=== PATIENT | female | born 2000 | race Two or more races ===

== ENCOUNTER 2021-04-11 00:19 | Emergency (ER) | payer OTHER ==
[~2021-04-11] VITALS: Ht 154.9 cm; Wt 54.4 kg
--- NOTE | 2021-04-11 00:19 | NUR ---
[facility] SI "CUT SELF WITH BLADE" ON 515 BY JEB, PT TO BED 13, COOPERATIVE. SI PRECAUTIONS STARTED, BELONGINGS KEPT IN LOCKER, DENIES SOB/CP VSS PENDING ER PROVIDER JENNIFER
[2021-04-11 01:18] LABS: BILIRUBIN,URINE SMALL (NEGATIVE); COLOR,URINE YELLOW (YELLOW); LEUKOCYTE ESTERASE ,URINE Negative (NEGATIVE); NITRITE, URINE Negative (NEGATIVE); PH,URINE 6.5 (5.0-8.0); PROTEIN,URINE Negative (NEGATIVE); UGLUCOSE Negative (NEGATIVE); UROBILINOGEN,URINE 0.2 EU/dL (0.2)
--- NOTE | 2021-04-11 01:27 | NUR ---
DELFINO [phone]
[2021-04-11 01:31] LABS: BASOPHILS % (AUTO) 0.4 % (0.0-2.0); EOSINOPHILS % (AUTO) 2.3 % (0.0-6.0); HEMATOCRIT 38 % (33-45); HEMOGLOBIN 12.9 g/dL (11.5-14.8); LYMPHOCYTES # (AUTO) 2.1 K/uL (0.8-4.8); LYMPHOCYTES % (AUTO) 22.7 % (20.0-44.0); MEAN CORPUSCULAR HGB CONC 34 g/dl (31.0-36.0); MEAN CORPUSCULAR VOLUME 85 fL (82-100); MONOCYTES # (AUTO) 0.8 K/uL (0.1-1.30); MONOCYTES % (AUTO) 8.2 % (2.0-12.0); NEUTROPHILS # (AUTO) 6.3 K/uL (1.8-8.9); NEUTROPHILS % (AUTO) 66.4 % (43.0-81.0); PLATELET COUNT (AUTO) 404 K/uL (150-450); WHITE BLOOD COUNT (AUTO) 9.4 K/uL (4.3-11.0)
[2021-04-11 01:51] LABS: ALANINE AMINOTRANSFERASE 17 U/L (12-78); ALBUMIN 3.5 g/dL (3.4-5.0); ALCOHOL, BLOOD < 3 mg/dL (0-0); ALKALINE PHOSPHATASE 61 U/L (46-116); ASPARTATE AMINOTRANSFERASE 13 U/L (15-37); BILIRUBIN,DIRECT 0.1 mg/dL (0.0-0.2); BILIRUBIN,TOTAL 0.4 mg/dL (0.2-1.0); CALCIUM, SERUM 8.6 mg/dL (8.5-10.1); CARBON DIOXIDE 26 mmol/L (21-32); CHLORIDE 107 mmol/L (98-107); CREATININE 0.7 mg/dL (0.6-1.3); GLUCOSE 102 mg/dL (74-106); POTASSIUM 4.4 mmol/L (3.5-5.1); SODIUM SERUM 141 mmol/L (136-145); TOTAL PROTEIN, SERUM 7.2 g/dL (6.4-8.2); UREA NITROGEN, BLOOD 8 mg/dL (7-18)
[2021-04-11 01:57] LABS: BACTERIA,URINE Rare /HPF (None Seen); SQUAMOUS EPITHELIAL CELL,UR Moderate /HPF (None Seen); WBC,URINE 0-2 /HPF (0-3)
[2021-04-11 01:57] LABS: ACETAMINOPHEN 0 ug/ml (10-30)
--- NOTE | 2021-04-11 02:38 | NUR ---
covid swab sent to lab
--- NOTE | 2021-04-11 05:05 | NUR ---
OSIEL- CRISIS TEAM PAGED. VOICEMAIL LEFT.
[2021-04-11] MEDS ORDERED: NALO4SPR NS (05:28)
--- NOTE | 2021-04-11 07:05 | NUR ---
gave report to REYES Lopez for elvis
--- NOTE | 2021-04-11 10:53 | NUR ---
LUZ RN AT BEDSIDE FOR PSYSH EVAL.
--- NOTE | 2021-04-11 12:16 | NUR ---
PT IS MEDICALLY AND PSYCH CLEARED. WILL BE BIOFUELS PROCESSING TECHNICIAN BY HER SISTER. DENIES SI/HI. DISCHARGE IN STABLE CONDITION.
[2021-04-11 12:18] VITALS: BP 122/70
== END 2021-04-11 12:19 | disposition home or self-care (01) ==
LOC: ER 00:24
DX: R45.851 Suicidal ideations (principal); F19.10 Other psychoactive substance abuse, uncomplicated; F15.10 Other stimulant abuse, uncomplicated; F11.10 Opioid abuse, uncomplicated; F12.10 Cannabis abuse, uncomplicated; F16.10 Hallucinogen abuse, uncomplicated; Z82.49 Family history of ischemic heart disease and other diseases of the circulatory system; Z20.822 Contact with and (suspected) exposure to COVID-19
CPT/HCPCS: 36415; 80048; 80076; 80143; 80307; 80320; 81001; 85025; 87426; 99285; C9803; G0480